=== PATIENT | male | born 1935 | race Caucasian/White ===

== ENCOUNTER 2018-08-01 19:33 | Inpatient (IN) | payer MEDICARE, MEDICAID ==
[~2018-08-01] VITALS: Ht 182.9 cm; Wt 99.0 kg
[~2018-08-01 19:33] MED LIST: ASPI-13 PO; IBUP-1985 PO; PROM6.256 PO
[2018-08-01] MEDS ORDERED: ondansetron/PF 4mg/2ml inj IV ONE (20:05)
[2018-08-01] MEDS ORDERED: normal saline 1000ML IV soln IVB ONE ×2 (20:05→22:35)
[2018-08-01 20:45] LABS: BASOPHILS % (AUTO) 0 % (0-1); EOSINOPHILS % (AUTO) 0.2 % (0-6); HEMATOCRIT 46.3 % (42.0-52.0); HEMOGLOBIN 15.8 g/dl (14.0-17.9); LYMPHOCYTES # (AUTO) 0.8 X10'3 (1.1-4.8); LYMPHOCYTES % (AUTO) 7.2 % (21-51); MEAN CORPUSCULAR HEMOGLOBIN 30.4 PG (27.0-31.0); MEAN CORPUSCULAR HGB CONC 34.1 % (33.0-36.5); MEAN PLATELET VOLUME 7.6 FL (7.4-10.4); MONOCYTES # (AUTO) 0.3 X10'3 (0-0.9); MONOCYTES % (AUTO) 3.3 % (2-12); NEUTROPHILS # (AUTO) 9.5 X10'3 (1.8-7.7); NEUTROPHILS % (AUTO) 89.3 % (42-75); PLATELET COUNT 202 X10'3 (140-440); RED BLOOD COUNT 5.21 X10'6 (4.70-6.10); RED CELL DISTRIBUTION WIDTH 13.5 % (11.5-14.5); WHITE BLOOD COUNT 10.6 X10'3 (4.5-11.0)
[2018-08-01 21:01] LABS: ALANINE AMINOTRANSFERASE 31 U/L (12-78); ALBUMIN 3.6 G/DL (3.4-5.0); ALBUMIN/GLOBULIN RATIO 1.1 (1.1-1.5); ALKALINE PHOSPHATASE 86 IU/L (46-116); ANION GAP 12 (8-16); ASPARTATE AMINO TRANSFERASE 18 U/L (10-37); BILIRUBIN,TOTAL 1.3 MG/DL (0.1-1.0); BLOOD UREA NITROGEN 18 MG/DL (7-18); BUN/CREATININE RATIO 11.8 (5.4-32.0); CALCIUM 8.7 MG/DL (8.5-10.1); CHLORIDE 102 MMOL/L (99-107); CREATININE 1.53 MG/DL (0.60-1.10); ETHANOL < 0.010 GM/DL (0.0-0.010); GLUCOSE 133 MG/DL (70-104); LIPASE 115 U/L (73-393); MAGNESIUM 1.5 MG/DL (1.5-2.4); POTASSIUM 3.8 MMOL/L (3.5-5.1); SODIUM 138 MMOL/L (135-145); TOTAL CARBON DIOXIDE 24.3 MMOL/L (24-32); TOTAL PROTEIN 6.9 G/DL (6.4-8.2); eGFR 44 ML/MIN
--- NOTE | 2018-08-01 22:09 | NUR ---
informed that patient has tried to void three times and is unable
[2018-08-01] MEDS ORDERED: magnesium 2GM in 50ml NS 50 ML IV ONE (22:35)
--- NOTE | 2018-08-01 22:35 | NUR ---
DISCUSSED PLAN OF CARE, ASKED ABOUT FLUIDS AND MAGNESIUM
--- NOTE | 2018-08-01 22:40 | NUR ---
TO CT SCAN VIA WC
--- NOTE | 2018-08-01 23:29 | NUR ---
DROPLET PERCAUTIONS DISCONTINUED
[2018-08-01] MEDS ORDERED: ATOR40TA72 PO (23:49)
[2018-08-01] MEDS ORDERED: TAMS0.4C32 PO (23:49)
[2018-08-01] MEDS ORDERED: AMLO5TAB16 PO (23:49)
[2018-08-02] MEDS ORDERED: acetaminophen 325mg tablet PO PRN ×2 (00:10)
[2018-08-02] MEDS ORDERED: HYDROcodone/acetaminophen 10/325mg tab PO PRN (00:10)
[2018-08-02] MEDS ORDERED: magnesium hydroxide 30ml (MOM) UD suspension PO PRN (00:10)
[2018-08-02] MEDS ORDERED: HYDROcodone/acetaminophen 5mg/325mg tablet PO PRN (00:10)
[2018-08-02] MEDS: normal saline 1000ml 1,000 ML IV SCH ×4 (00:34→22:51)
[2018-08-02 02:29] LABS: CLARITY,URINE CLEAR (Clear); COLOR,URINE YELLOW (Yellow); GLUCOSE, URINE NEGATIVE (Neg); KETONES,URINE TRACE mg/dl (Neg); LEUKOCYTE ESTERASE ,URINE NEGATIVE (Neg); NITRITES, URINE NEGATIVE (Neg); OCCULT BLOOD,URINE NEGATIVE (Neg); PH,URINE 6.5 (4.8-8.0); PROTEIN,URINE NEGATIVE (Neg); UROBILINOGEN,URINE 0.2 E.U/dL (0.2-1.0)
[2018-08-02 02:31] LABS: UA COLLECTION TYPE STRAIGHT CATH
--- NOTE | 2018-08-02 07:45 | NUR ---
Patient in room ORTHO 4011. I have received report from Asia Man in the ER and had the opportunity to ask questions and assume patient care.
[2018-08-02] MEDS ORDERED: enoxaparin 40mg/0.4ml syringe SUBCUT SCH (08:00)
[2018-08-02 09:00] VITALS: BP 136/87
[2018-08-02] MEDS: tamsulosin 0.4mg capsule PO SCH (09:14)
[2018-08-02] MEDS: amLODIPine 5mg tablet PO SCH (09:15)
[2018-08-02] MEDS: ondansetron/PF 4mg/2ml inj IV PRN (09:15)
[2018-08-02] MEDS: atorvastatin 20mg tablet PO SCH (09:15)
[2018-08-02] MEDS ORDERED: enoxaparin 30mg/0.3ml syringe SUBCUT SCH (09:16)
[2018-08-02 09:39] LABS: BASOPHILS % (AUTO) 0.3 % (0-1); EOSINOPHILS # (AUTO) 0.1 X10'3 (0-0.9); EOSINOPHILS % (AUTO) 1.7 % (0-6); HEMOGLOBIN 13.8 g/dl (14.0-17.9); LYMPHOCYTES % (AUTO) 14.6 % (21-51); MEAN CORPUSCULAR HEMOGLOBIN 30.2 PG (27.0-31.0); MEAN CORPUSCULAR HGB CONC 33.7 % (33.0-36.5); MEAN CORPUSCULAR VOLUME 89.7 FL (78-98); MEAN PLATELET VOLUME 7.6 FL (7.4-10.4); MONOCYTES # (AUTO) 0.5 X10'3 (0-0.9); MONOCYTES % (AUTO) 7.4 % (2-12); NEUTROPHILS # (AUTO) 5.4 X10'3 (1.8-7.7); PLATELET COUNT 183 X10'3 (140-440); RED BLOOD COUNT 4.58 X10'6 (4.70-6.10); RED CELL DISTRIBUTION WIDTH 13.8 % (11.5-14.5); WHITE BLOOD COUNT 7.1 X10'3 (4.5-11.0)
[2018-08-02 09:52] LABS: ALANINE AMINOTRANSFERASE 26 U/L (12-78); ALKALINE PHOSPHATASE 71 IU/L (46-116); ANION GAP 9 (8-16); ASPARTATE AMINO TRANSFERASE 16 U/L (10-37); BILIRUBIN,TOTAL 0.8 MG/DL (0.1-1.0); BLOOD UREA NITROGEN 16 MG/DL (7-18); BUN/CREATININE RATIO 12.6 (5.4-32.0); CALCIUM 7.6 MG/DL (8.5-10.1); CHLORIDE 106 MMOL/L (99-107); CREATININE 1.27 MG/DL (0.60-1.10); GLUCOSE 107 MG/DL (70-104); POTASSIUM 3.9 MMOL/L (3.5-5.1); SODIUM 140 MMOL/L (135-145); TOTAL CARBON DIOXIDE 25.4 MMOL/L (24-32); TOTAL PROTEIN 5.9 G/DL (6.4-8.2); eGFR 54 ML/MIN
[2018-08-02 10:00] VITALS: BP 135/65
[2018-08-02] MEDS: mag hydrox/Alum hydrox/simeth 30ml oral suspension PO PRN ×2 (13:27→21:38)
[2018-08-02 18:00] VITALS: BP 124/53
--- NOTE | 2018-08-02 18:10 | NUR ---
Patient in room ORTHO 4011. I have received report from ELVIS Ga and had the opportunity to ask questions and assume patient care.
--- NOTE | 2018-08-02 18:12 | NUR ---
Problems reprioritized. Patient report given, questions answered & plan of care reviewed with Jenna LEAL.
[2018-08-02] MEDS: LIDOcaine/PRILOcaine 5gm cream TP PRN (19:16)
[2018-08-02] MEDS: temazepam 15mg capsule PO PRN (21:41)
[2018-08-02 22:00] VITALS: BP 115/53
[2018-08-03] MEDS: ondansetron/PF 4mg/2ml inj IV PRN (03:29)
[2018-08-03] MEDS: LIDOcaine/PRILOcaine 5gm cream TP PRN ×2 (03:44→10:20)
[2018-08-03 06:00] VITALS: BP 134/54
--- NOTE | 2018-08-03 06:11 | NUR ---
received report from bonny mcintosh
--- NOTE | 2018-08-03 06:23 | NUR ---
Problems reprioritized. Patient report given, questions answered & plan of care reviewed with ELVIS Crump.
[2018-08-03 06:57] LABS: BASOPHILS % (AUTO) 0.1 % (0-1); EOSINOPHILS # (AUTO) 0.2 X10'3 (0-0.9); EOSINOPHILS % (AUTO) 3.2 % (0-6); HEMATOCRIT 39.9 % (42.0-52.0); HEMOGLOBIN 13.4 g/dl (14.0-17.9); LYMPHOCYTES # (AUTO) 1.5 X10'3 (1.1-4.8); LYMPHOCYTES % (AUTO) 18.6 % (21-51); MEAN CORPUSCULAR HEMOGLOBIN 30.3 PG (27.0-31.0); MEAN CORPUSCULAR HGB CONC 33.7 % (33.0-36.5); MEAN CORPUSCULAR VOLUME 89.8 FL (78-98); MEAN PLATELET VOLUME 7.8 FL (7.4-10.4); MONOCYTES # (AUTO) 0.7 X10'3 (0-0.9); MONOCYTES % (AUTO) 8.6 % (2-12); NEUTROPHILS # (AUTO) 5.5 X10'3 (1.8-7.7); NEUTROPHILS % (AUTO) 69.5 % (42-75); PLATELET COUNT 181 X10'3 (140-440); RED BLOOD COUNT 4.44 X10'6 (4.70-6.10); RED CELL DISTRIBUTION WIDTH 14.1 % (11.5-14.5); WHITE BLOOD COUNT 7.9 X10'3 (4.5-11.0)
[2018-08-03 06:59] LABS: ALBUMIN 2.8 G/DL (3.4-5.0); ANION GAP 8 (8-16); BLOOD UREA NITROGEN 11 MG/DL (7-18); BUN/CREATININE RATIO 8.9 (5.4-32.0); CALCIUM 7.7 MG/DL (8.5-10.1); CHLORIDE 109 MMOL/L (99-107); CREATININE 1.23 MG/DL (0.60-1.10); GLUCOSE 102 MG/DL (70-104); POTASSIUM 4.1 MMOL/L (3.5-5.1); SODIUM 142 MMOL/L (135-145); TOTAL CARBON DIOXIDE 25.2 MMOL/L (24-32); eGFR 56 ML/MIN
[2018-08-03] MEDS: atorvastatin 20mg tablet PO SCH (07:47)
[2018-08-03] MEDS: tamsulosin 0.4mg capsule PO SCH (07:47)
[2018-08-03] MEDS: amLODIPine 5mg tablet PO SCH (07:47)
[2018-08-03] MEDS: normal saline 1000ml 1,000 ML IV SCH (07:51)
[2018-08-03 10:00] VITALS: BP 118/68
--- NOTE | 2018-08-03 18:05 | NUR ---
gave report to bonny juárez
--- NOTE | 2018-08-03 18:08 | NUR ---
RECEIVED REPORT FROM AUSTIN LEAL AND ASSUMED PATIENT CARE
[2018-08-03 18:10] VITALS: BP 119/56
[2018-08-04] MEDS: normal saline 1000ml 1,000 ML IV SCH ×4 (03:45→23:52)
[2018-08-04 04:24] VITALS: BP 128/48
[2018-08-04 06:00] VITALS: BP 128/83
--- NOTE | 2018-08-04 06:20 | NUR ---
REPORT GIVEN TO CHRISTINA LEAL
[2018-08-04 06:39] LABS: BASOPHILS % (AUTO) 0.4 % (0-1); EOSINOPHILS # (AUTO) 0.3 X10'3 (0-0.9); EOSINOPHILS % (AUTO) 3.8 % (0-6); HEMATOCRIT 37.2 % (42.0-52.0); HEMOGLOBIN 12.5 g/dl (14.0-17.9); LYMPHOCYTES # (AUTO) 1.7 X10'3 (1.1-4.8); LYMPHOCYTES % (AUTO) 26.1 % (21-51); MEAN CORPUSCULAR HEMOGLOBIN 30.3 PG (27.0-31.0); MEAN CORPUSCULAR HGB CONC 33.6 % (33.0-36.5); MEAN CORPUSCULAR VOLUME 90.3 FL (78-98); MEAN PLATELET VOLUME 7.9 FL (7.4-10.4); MONOCYTES # (AUTO) 0.6 X10'3 (0-0.9); NEUTROPHILS % (AUTO) 60.7 % (42-75); PLATELET COUNT 160 X10'3 (140-440); RED BLOOD COUNT 4.12 X10'6 (4.70-6.10); RED CELL DISTRIBUTION WIDTH 13.6 % (11.5-14.5); WHITE BLOOD COUNT 6.6 X10'3 (4.5-11.0)
[2018-08-04 06:44] LABS: ALBUMIN 2.6 G/DL (3.4-5.0); ANION GAP 8 (8-16); BLOOD UREA NITROGEN 9 MG/DL (7-18); BUN/CREATININE RATIO 7.5 (5.4-32.0); CALCIUM 7.6 MG/DL (8.5-10.1); CHLORIDE 110 MMOL/L (99-107); CHOL/HDL RATIO 2.5 (0.00-4.99); CHOLESTEROL 76 MG/DL (0-200); GLUCOSE 100 MG/DL (70-104); HDL CHOLESTEROL 31 MG/DL (35-60); LDL CHOLESTEROL 37 MG/DL (50-100); POTASSIUM 4.1 MMOL/L (3.5-5.1); SODIUM 143 MMOL/L (135-145); TOTAL CARBON DIOXIDE 25.1 MMOL/L (24-32); TRIGLYCERIDES 82 MG/DL (20-135); eGFR 58 ML/MIN
[2018-08-04] MEDS: tamsulosin 0.4mg capsule PO SCH (07:57)
[2018-08-04] MEDS: enoxaparin 40mg/0.4ml syringe SUBCUT SCH (07:58)
[2018-08-04] MEDS: atorvastatin 20mg tablet PO SCH (07:58)
[2018-08-04] MEDS: amLODIPine 5mg tablet PO SCH (07:59)
--- NOTE | 2018-08-04 08:05 | NUR ---
patients heart rate 48. rechecked manually 45. Dr. Monsalve ordered to hold the amlodapine and give the other medications and start patient on tele monitor.
[2018-08-04] MEDS: mag hydrox/Alum hydrox/simeth 30ml oral suspension PO PRN (08:45)
[2018-08-04 10:00] VITALS: BP 120/51
[2018-08-04 18:00] VITALS: BP 139/55
--- NOTE | 2018-08-04 18:33 | NUR ---
Problems reprioritized. Patient report given, questions answered & plan of care reviewed with Gardenia LEAL .
[2018-08-04] MEDS: barium sulfate 450ml oral suspension PO NR (19:52)
--- NOTE | 2018-08-04 20:30 | NUR ---
tele called that HR down to 39. pt was up in Bathroom. pt states he bears down every time he goes to the bathroom. educated to not bear down. no symptoms of dizziness from low HR. drank barium - prefers chilled. educated on NPO status - verbalized understanding.
[2018-08-04 22:00] VITALS: BP 139/65
[2018-08-04] MEDS: temazepam 15mg capsule PO PRN (23:49)
[2018-08-05 01:28] VITALS: BP 122/67
[2018-08-05 06:00] VITALS: BP 145/61
[2018-08-05 06:10] LABS: BASOPHILS % (AUTO) 0.4 % (0-1); EOSINOPHILS # (AUTO) 0.2 X10'3 (0-0.9); EOSINOPHILS % (AUTO) 3.5 % (0-6); HEMATOCRIT 37.2 % (42.0-52.0); HEMOGLOBIN 12.5 g/dl (14.0-17.9); LYMPHOCYTES % (AUTO) 28.3 % (21-51); MEAN CORPUSCULAR HEMOGLOBIN 30.6 PG (27.0-31.0); MEAN CORPUSCULAR HGB CONC 33.7 % (33.0-36.5); MEAN CORPUSCULAR VOLUME 90.9 FL (78-98); MEAN PLATELET VOLUME 7.8 FL (7.4-10.4); MONOCYTES # (AUTO) 0.5 X10'3 (0-0.9); MONOCYTES % (AUTO) 7.2 % (2-12); NEUTROPHILS # (AUTO) 4.2 X10'3 (1.8-7.7); NEUTROPHILS % (AUTO) 60.6 % (42-75); PLATELET COUNT 176 X10'3 (140-440); RED BLOOD COUNT 4.09 X10'6 (4.70-6.10); RED CELL DISTRIBUTION WIDTH 13.7 % (11.5-14.5); WHITE BLOOD COUNT 6.9 X10'3 (4.5-11.0)
--- NOTE | 2018-08-05 06:10 | NUR ---
Patient in room ORTHO 4014. I have received report from Aisha Waite and had the opportunity to ask questions and assume patient care. Addendum: 08/05/18 at 0641 by Jacqueline Palacios RN Report received from Gia
[2018-08-05 06:17] LABS: ALBUMIN 2.7 G/DL (3.4-5.0); ANION GAP 7 (8-16); BLOOD UREA NITROGEN 9 MG/DL (7-18); BUN/CREATININE RATIO 7.9 (5.4-32.0); CALCIUM 7.8 MG/DL (8.5-10.1); CHLORIDE 109 MMOL/L (99-107); CREATININE 1.14 MG/DL (0.60-1.10); GLUCOSE 90 MG/DL (70-104); SODIUM 142 MMOL/L (135-145); TOTAL CARBON DIOXIDE 26.2 MMOL/L (24-32); eGFR 62 ML/MIN
--- NOTE | 2018-08-05 06:34 | NUR ---
reported to days. noted pt resting w/o distress. aware of NPO status. baruim due at 0700
[2018-08-05] MEDS: barium sulfate 450ml oral suspension PO NR ×2 (07:10→09:38)
[2018-08-05] MEDS: amLODIPine 5mg tablet PO SCH (08:00)
[2018-08-05] MEDS: tamsulosin 0.4mg capsule PO SCH (08:25)
[2018-08-05] MEDS: atorvastatin 20mg tablet PO SCH (08:25)
[2018-08-05] MEDS: enoxaparin 40mg/0.4ml syringe SUBCUT SCH (08:26)
[2018-08-05 10:00] VITALS: BP 152/62
[2018-08-05] MEDS: normal saline 1000ml 1,000 ML IV SCH (15:11)
[2018-08-05 18:00] VITALS: BP 153/54
--- NOTE | 2018-08-05 18:28 | NUR ---
Problems reprioritized. Patient report given, questions answered & plan of care reviewed with Dayna.
[2018-08-05] MEDS: temazepam 15mg capsule PO PRN (21:58)
[2018-08-05] MEDS: simethicone 80mg chew tab PO SCH (21:59)
[2018-08-05 22:00] VITALS: BP 149/56
[2018-08-06] MEDS: normal saline 1000ml 1,000 ML IV SCH (04:10)
[2018-08-06 06:00] VITALS: BP 149/58
--- NOTE | 2018-08-06 06:10 | NUR ---
Patient in room ORTHO 4014. I have received report from Dayna and had the opportunity to ask questions and assume patient care.
--- NOTE | 2018-08-06 06:17 | NUR ---
REPORT GIVEN TO ELVIS ANGELA.
[2018-08-06 06:39] LABS: BASOPHILS % (AUTO) 0.5 % (0-1); EOSINOPHILS # (AUTO) 0.2 X10'3 (0-0.9); EOSINOPHILS % (AUTO) 2.5 % (0-6); HEMATOCRIT 38.3 % (42.0-52.0); HEMOGLOBIN 12.9 g/dl (14.0-17.9); LYMPHOCYTES # (AUTO) 1.9 X10'3 (1.1-4.8); LYMPHOCYTES % (AUTO) 27.4 % (21-51); MEAN CORPUSCULAR HEMOGLOBIN 30.2 PG (27.0-31.0); MEAN CORPUSCULAR HGB CONC 33.7 % (33.0-36.5); MEAN CORPUSCULAR VOLUME 89.7 FL (78-98); MEAN PLATELET VOLUME 7.9 FL (7.4-10.4); MONOCYTES # (AUTO) 0.5 X10'3 (0-0.9); NEUTROPHILS # (AUTO) 4.3 X10'3 (1.8-7.7); NEUTROPHILS % (AUTO) 62.6 % (42-75); PLATELET COUNT 206 X10'3 (140-440); RED BLOOD COUNT 4.27 X10'6 (4.70-6.10); RED CELL DISTRIBUTION WIDTH 13.4 % (11.5-14.5); WHITE BLOOD COUNT 6.9 X10'3 (4.5-11.0)
[2018-08-06 06:50] LABS: ALBUMIN 2.9 G/DL (3.4-5.0); ANION GAP 7 (8-16); BLOOD UREA NITROGEN 12 MG/DL (7-18); BUN/CREATININE RATIO 10.8 (5.4-32.0); CALCIUM 8.3 MG/DL (8.5-10.1); CHLORIDE 108 MMOL/L (99-107); CREATININE 1.11 MG/DL (0.60-1.10); GLUCOSE 101 MG/DL (70-104); POTASSIUM 3.8 MMOL/L (3.5-5.1); SODIUM 142 MMOL/L (135-145); TOTAL CARBON DIOXIDE 26.6 MMOL/L (24-32); eGFR 64 ML/MIN
[2018-08-06] MEDS: amLODIPine 5mg tablet PO SCH (08:00)
[2018-08-06] MEDS: atorvastatin 20mg tablet PO SCH (08:06)
[2018-08-06] MEDS: tamsulosin 0.4mg capsule PO SCH (08:06)
[2018-08-06] MEDS: simethicone 80mg chew tab PO SCH ×2 (08:07→13:12)
[2018-08-06] MEDS: enoxaparin 40mg/0.4ml syringe SUBCUT SCH (08:07)
[2018-08-06 10:00] VITALS: BP 182/98
--- NOTE | 2018-08-06 10:01 | NUR ---
PAGER ID: [phone] MESSAGE: Jacqueline Bal Dr. on ortho/neuro. # [id number]. Pt in room 4014A, Mr. Gonzalez had BP of 182/98, and 180/66, HR 50, please advise. Thank you
[2018-08-06] MEDS ORDERED: enalaprilat dihydrate 2.5mg/2ml vial IV PRN (11:00)
--- NOTE | 2018-08-06 11:16 | NUR ---
Initial: Pt admit w/ diarrhea, nausea, vomiting and concerns w/ possible food poisoning from pt per EMR. CT negative for Ileus per MD note. Pt PO 100% mechanical soft/chopped meals meeting needs at this time. LBM 08/05. On simethicone for gas. Will continue to monitor. Rec: 1. continue mechanical soft/chopped diet 2. wt per rx Addendum: 08/06/18 at [address]án [address] RD Amended: Links added.
--- NOTE | 2018-08-06 12:20 | NUR ---
PAGER ID: [phone] MESSAGE: Mario Tyler, Jacqueline on ortho, #[id number], pt in room 4014A, Mr. Gonzalez, does not have an IV (per MD yesterday), Retake of his BP was 158/74 and HR 45 at 12:15. Please advise
--- NOTE | 2018-08-06 12:46 | NUR ---
Problems reprioritized. Patient report given, questions answered & plan of care reviewed with
--- NOTE | 2018-08-06 15:35 | NUR ---
Patient discharged with his brother and he is aware he has to follow up with Dr. Neumann and [facility]. He had all of his belongings and stop by hotel front desk agent to get his pocket knife.
== END 2018-08-06 15:30 | disposition home or self-care (01) | DRG 388 ==
LOC: ER 19:34 → ED HOLD 08-02 00:10 → ORTHO 4S 08-02 07:46
PROVIDERS: ADMIT Hospitalist; ATTEND Family Medicine
DX: K56.609 Unspecified intestinal obstruction, unspecified as to partial versus complete obstruction (principal); N17.0 Acute kidney failure with tubular necrosis; K57.90 Diverticulosis of intestine, part unspecified, without perforation or abscess without bleeding; M94.0 Chondrocostal junction syndrome [Tietze]; E86.0 Dehydration; G47.33 Obstructive sleep apnea (adult) (pediatric); N40.0 Benign prostatic hyperplasia without lower urinary tract symptoms; E78.5 Hyperlipidemia, unspecified; K72.90 Hepatic failure, unspecified without coma; R00.1 Bradycardia, unspecified; I25.10 Atherosclerotic heart disease of native coronary artery without angina pectoris; K56.7 Ileus, unspecified; Z66 Do not resuscitate; Z59.0 Homelessness; Z90.49 Acquired absence of other specified parts of digestive tract; Z91.041 Radiographic dye allergy status; Z86.73 Personal history of transient ischemic attack (TIA), and cerebral infarction without residual deficits; Z87.442 Personal history of urinary calculi
CPT/HCPCS: 36415; 71045; 74018; 74021; 74176; 80048; 80053; 80061; 80320; 81003; 83605; 83690; 83735; 84484; 85025; 87040; 87070; 87502; 87503; 93005; 96361; 96365; 96375; 97161; 99285; G0378; J1650; J2405; J3475; J7030

== ENCOUNTER 2019-05-30 06:17 | Emergency (ER) | payer MEDICARE, MEDICAID ==
[~2019-05-30] VITALS: Ht 180.3 cm; Wt 102.0 kg
[~2019-05-30 06:17] MED LIST changes: +AMLO5TAB16 PO; -ASPI-13 PO; +ATOR40TA72 PO; -IBUP-1985 PO; -PROM6.256 PO; +TAMS0.4C32 PO
[2019-05-30 06:23] VITALS: BP 178/87
[2019-05-30] MEDS ORDERED: triamcinolone acetonide 40mg/ml inj IM ONE (06:50)
== END 2019-05-30 07:15 | disposition home or self-care (01) ==
LOC: ER 06:18
DX: R21 Rash and other nonspecific skin eruption (principal); I25.10 Atherosclerotic heart disease of native coronary artery without angina pectoris; G47.30 Sleep apnea, unspecified; Z86.73 Personal history of transient ischemic attack (TIA), and cerebral infarction without residual deficits; Z86.718 Personal history of other venous thrombosis and embolism; Z90.49 Acquired absence of other specified parts of digestive tract; Z90.89 Acquired absence of other organs; Z60.2 Problems related to living alone; Z88.6 Allergy status to analgesic agent; Z79.899 Other long term (current) drug therapy
CPT/HCPCS: 96372; 99283; J3301

== ENCOUNTER 2021-04-04 07:05 | Emergency (ER) | payer MEDICARE, MEDICAID ==
[~2021-04-04] VITALS: Ht 180.3 cm; Wt 100.0 kg
[2021-04-04 07:28] VITALS: BP 150/82
--- NOTE | 2021-04-04 08:20 | NUR ---
Per registration, patient became upset after another patient had been called back to a quick assessment room before he was called back to a room. Patient left lobby. Will continue to attempt to call patient back to a room three times per protocol.
== END 2021-04-04 08:57 | disposition left against medical advice (07) ==
LOC: ER 07:06
DX: M54.9 Dorsalgia, unspecified (principal); R10.9 Unspecified abdominal pain; Z53.21 Procedure and treatment not carried out due to patient leaving prior to being seen by health care provider

== ENCOUNTER 2022-08-24 10:35 | Emergency (ER) | payer MEDICARE, MEDICAID ==
[~2022-08-24] VITALS: Ht 180.3 cm; Wt 103.6 kg
[2022-08-24 11:14] VITALS: BP 138/87
[2022-08-24 11:56] LABS: BASOPHILS # (AUTO) 0.1 X10'3 (0-0.2); EOSINOPHILS # (AUTO) 0.2 X10'3 (0-0.9); EOSINOPHILS % (AUTO) 2.8 % (0-6); HEMATOCRIT 44.4 % (42.0-52.0); LYMPHOCYTES % (AUTO) 11.1 % (21-51); MEAN CORPUSCULAR HEMOGLOBIN 30.7 PG (27.0-31.0); MEAN CORPUSCULAR HGB CONC 33.9 g/dL (33.0-36.5); MEAN CORPUSCULAR VOLUME 90.5 FL (78-98); MEAN PLATELET VOLUME 7.2 FL (7.4-10.4); MONOCYTES # (AUTO) 0.7 X10'3 (0-0.9); MONOCYTES % (AUTO) 7.5 % (2-12); NEUTROPHILS # (AUTO) 6.9 X10'3 (1.8-7.7); NEUTROPHILS % (AUTO) 77.6 % (42-75); PLATELET COUNT 214 X10'3 (140-440); RED CELL DISTRIBUTION WIDTH 14.3 % (11.5-14.5); WHITE BLOOD COUNT 8.9 X10'3 (4.5-11.0)
[2022-08-24 12:12] LABS: ALANINE AMINOTRANSFERASE 14 U/L (12-78); ALBUMIN 3.8 G/DL (3.4-5.0); ALBUMIN/GLOBULIN RATIO 1.2 (1.1-1.5); ALKALINE PHOSPHATASE 78 IU/L (46-116); ANION GAP 8 (8-16); ASPARTATE AMINO TRANSFERASE 20 U/L (10-37); BILIRUBIN,TOTAL 0.6 MG/DL (0.1-1.0); BLOOD UREA NITROGEN 20 MG/DL (7-18); BUN/CREATININE RATIO 17.1 (5.4-32.0); CALCIUM 9.6 MG/DL (8.5-10.1); CHLORIDE 103 MMOL/L (99-107); CREATININE 1.17 MG/DL (0.60-1.10); GLUCOSE 144 MG/DL (70-104); POTASSIUM 4.2 MMOL/L (3.5-5.1); SODIUM 140 MMOL/L (135-145); TOTAL CARBON DIOXIDE 28.7 MMOL/L (24-32); eGFR 59 ML/MIN
== END 2022-08-24 16:32 | disposition left against medical advice (07) ==
LOC: ER 10:36
DX: R05.9 Cough, unspecified (principal); M25.561 Pain in right knee; M25.562 Pain in left knee; Z91.041 Radiographic dye allergy status; Z90.49 Acquired absence of other specified parts of digestive tract; Z98.890 Other specified postprocedural states
CPT/HCPCS: 36415; 71046; 80053; 83605; 83880; 84484; 85025; 87040; 99284

== ENCOUNTER 2023-03-14 09:44 | Emergency (ER) | payer MEDICARE, MEDICAID ==
[~2023-03-14] VITALS: Ht 182.9 cm; Wt 100.0 kg
[2023-03-14 11:07] VITALS: TEMP 98.6
--- NOTE | 2023-03-14 11:21 | NUR ---
PT HAD $708 DOLLARS COLMENARES. RN AND REGISTRATION COUNTED $708 WITH PT AND MONEY WILL BE PLACED IN THE [facility].
--- NOTE | 2023-03-14 11:52 | NUR ---
LABS HAVE NOT BEEN COLLECTED. RN WILL ATTEMPT TO COLLECT FROM IV.
--- NOTE | 2023-03-14 12:04 | NUR ---
RN UNABLE TO COLLECT BLOOD FROM IV. LAB AT BEDSIDE COLLECTING BLOOD NOW.
[2023-03-14 12:28] LABS: BASOPHILS # (AUTO) 0.1 X10'3 (0-0.2); BASOPHILS % (AUTO) 0.8 % (0-1); EOSINOPHILS # (AUTO) 0.2 X10'3 (0-0.9); EOSINOPHILS % (AUTO) 2.2 % (0-6); HEMATOCRIT 43.3 % (42.0-52.0); HEMOGLOBIN 14.7 g/dl (14.0-17.9); LYMPHOCYTES # (AUTO) 1.6 X10'3 (1.1-4.8); LYMPHOCYTES % (AUTO) 17.7 % (21-51); MEAN CORPUSCULAR HEMOGLOBIN 30.7 PG (27.0-31.0); MEAN CORPUSCULAR VOLUME 90.3 FL (78-98); MEAN PLATELET VOLUME 7.2 FL (7.4-10.4); MONOCYTES # (AUTO) 0.7 X10'3 (0-0.9); MONOCYTES % (AUTO) 7.7 % (2-12); NEUTROPHILS # (AUTO) 6.4 X10'3 (1.8-7.7); NEUTROPHILS % (AUTO) 71.6 % (42-75); PLATELET COUNT 230 X10'3 (140-440); RED CELL DISTRIBUTION WIDTH 14.4 % (11.5-14.5)
[2023-03-14 12:46] LABS: ALANINE AMINOTRANSFERASE 21 U/L (12-78); ALBUMIN 3.9 G/DL (3.4-5.0); ALBUMIN/GLOBULIN RATIO 1.3 (1.1-1.5); ALKALINE PHOSPHATASE 71 IU/L (46-116); ANION GAP 9 (8-16); ASPARTATE AMINO TRANSFERASE 23 U/L (10-37); BILIRUBIN,TOTAL 0.9 MG/DL (0.1-1.0); BLOOD UREA NITROGEN 33 MG/DL (7-18); CHLORIDE 102 MMOL/L (99-107); CREATININE 1.74 MG/DL (0.60-1.10); GLUCOSE 142 MG/DL (70-104); POTASSIUM 4.9 MMOL/L (3.5-5.1); SODIUM 139 MMOL/L (135-145); TOTAL CARBON DIOXIDE 28.4 MMOL/L (24-32); TOTAL PROTEIN 6.9 G/DL (6.4-8.2); eCRCL 33 ML/MIN; eGFR 37 ML/MIN
[2023-03-14 12:57] LABS: PRO BRAIN NATRIURETIC PEPTIDE 124 PG/ML (0-450)
[2023-03-14] MEDS ORDERED: normal saline 1000ML IV soln IVB ONE (13:10)
--- NOTE | 2023-03-14 14:24 | NUR ---
RN REQ REGISTRATION GET PT MONEY FROM THE [facility] AND GIVE IT BACK TO PT. PT PREPARING FOR DISCHARGE.
--- NOTE | 2023-03-14 14:54 | NUR ---
RN COUNTED MONEY RETURN TO PT BY REGISTRATION. RN COUNTED WITH PT $707 RETURNED. PT AGREED TO PAY FOR TAXI.
--- NOTE | 2023-03-14 14:59 | NUR ---
PT AGREED TO PAY FOR TAXI. TAXI CALLED. CANE PROVIDED TO PT HE WAS USING HIS UMBRELLA A CANE. RN WILL ATTEMPT TO LOCATE SWEAT SUIT D/T PT CLOTHES WET FROM RAIN.
[2023-03-14 15:00] VITALS: BP 160/80; PULSE 65; RESP 17; O2SAT 94
== END 2023-03-14 15:13 | disposition home or self-care (01) ==
LOC: ER 09:45
DX: G20 Parkinson's disease (principal); R42 Dizziness and giddiness; W19.XXXA Unspecified fall, initial encounter; Y93.89 Activity, other specified; Y92.89 Other specified places as the place of occurrence of the external cause; Y99.8 Other external cause status
CPT/HCPCS: 36415; 71045; 80053; 82948; 83880; 84484; 85025; 93005; 96360; 99285; J7030

== ENCOUNTER 2023-07-02 23:55 | Emergency (ER) | payer MEDICARE, MEDICAID ==
[~2023-07-02] VITALS: Ht 182.9 cm; Wt 100.1 kg
[2023-07-02 23:59] VITALS: BP 143/93; PULSE 70; RESP 18; TEMP 98.3; O2SAT 94
== END 2023-07-03 07:10 | disposition left against medical advice (07) ==
LOC: ER 23:55
DX: M54.50 Low back pain, unspecified (principal); Z53.21 Procedure and treatment not carried out due to patient leaving prior to being seen by health care provider
CPT/HCPCS: 99281

== ENCOUNTER 2023-11-01 09:26 | Emergency (ER) | payer MEDICARE, MEDICAID ==
[~2023-11-01] VITALS: Ht 182.9 cm; Wt 100.0 kg
[2023-11-01 10:33] LABS: BASOPHILS # (AUTO) 0.1 X10'3 (0-0.2); BASOPHILS % (AUTO) 0.9 % (0-1); EOSINOPHILS # (AUTO) 0.1 X10'3 (0-0.9); EOSINOPHILS % (AUTO) 1.8 % (0-6); HEMATOCRIT 41.1 % (42.0-52.0); LYMPHOCYTES # (AUTO) 1.7 X10'3 (1.1-4.8); LYMPHOCYTES % (AUTO) 20.7 % (21-51); MEAN CORPUSCULAR VOLUME 88.4 FL (78-98); MEAN PLATELET VOLUME 7.8 FL (7.4-10.4); MONOCYTES # (AUTO) 0.5 X10'3 (0-0.9); MONOCYTES % (AUTO) 5.6 % (2-12); NEUTROPHILS # (AUTO) 5.8 X10'3 (1.8-7.7); PLATELET COUNT 202 X10'3 (140-440); RED BLOOD COUNT 4.65 X10'6 (4.70-6.10); RED CELL DISTRIBUTION WIDTH 14.1 % (11.5-14.5); WHITE BLOOD COUNT 8.2 X10'3 (4.5-11.0)
[2023-11-01 11:03] LABS: ALBUMIN 3.1 G/DL (3.4-5.0); ANION GAP 8 (8-16); BLOOD UREA NITROGEN 13 MG/DL (7-18); BUN/CREATININE RATIO 12.6 (10.0-20.0); CALCIUM 8.6 MG/DL (8.5-10.1); CHLORIDE 105 MMOL/L (99-107); CREATININE 1.03 MG/DL (0.60-1.10); GLUCOSE 246 MG/DL (70-104); POTASSIUM 3.7 MMOL/L (3.5-5.1); PRO BRAIN NATRIURETIC PEPTIDE 284 PG/ML (0-450); SODIUM 139 MMOL/L (135-145); TOTAL CARBON DIOXIDE 25.6 MMOL/L (24-32); eCRCL 57 ML/MIN; eGFR 68 ML/MIN
[2023-11-01] MEDS ORDERED: ketorolac trometh inj. 60 MG/2 ML VIAL IM ONE (11:45)
[2023-11-01] MEDS: ketorolac tromethamine 15mg/ml inj. IM ONE (12:07)
[2023-11-01 13:03] VITALS: BP 118/68; PULSE 68; RESP 16; TEMP 97.8; O2SAT 97
== END 2023-11-01 13:04 | disposition home or self-care (01) ==
LOC: ER 09:28
DX: M54.6 Pain in thoracic spine (principal); R07.89 Other chest pain; Z88.8 Allergy status to other drugs, medicaments and biological substances; I25.10 Atherosclerotic heart disease of native coronary artery without angina pectoris; Z86.73 Personal history of transient ischemic attack (TIA), and cerebral infarction without residual deficits; G47.30 Sleep apnea, unspecified; Z86.718 Personal history of other venous thrombosis and embolism; Z90.49 Acquired absence of other specified parts of digestive tract
CPT/HCPCS: 36415; 71045; 72070; 80048; 83880; 84484; 85025; 93005; 96372; 99285; J1885

== ENCOUNTER 2024-03-20 15:39 | Emergency (ER) | payer MEDICARE, MEDICAID ==
[~2024-03-20] VITALS: Ht 182.9 cm; Wt 82.7 kg
[2024-03-20 16:40] LABS: BASOPHILS # (AUTO) 0.1 X10'3 (0-0.2); EOSINOPHILS # (AUTO) 0.2 X10'3 (0-0.9); EOSINOPHILS % (AUTO) 1.9 % (0-6); HEMATOCRIT 38.9 % (42.0-52.0); HEMOGLOBIN 12.8 g/dl (14.0-17.9); LYMPHOCYTES # (AUTO) 1.7 X10'3 (1.1-4.8); MEAN CORPUSCULAR HEMOGLOBIN 29.2 PG (27.0-31.0); MEAN CORPUSCULAR VOLUME 88.3 FL (78-98); MONOCYTES # (AUTO) 0.5 X10'3 (0-0.9); MONOCYTES % (AUTO) 6.4 % (2-12); NEUTROPHILS % (AUTO) 70.7 % (42-75); PLATELET COUNT 219 X10'3 (140-440); RED CELL DISTRIBUTION WIDTH 14.4 % (11.5-14.5); WHITE BLOOD COUNT 8.5 X10'3 (4.5-11.0)
[2024-03-20 16:50] LABS: ALBUMIN 3.2 G/DL (3.4-5.0); ALKALINE PHOSPHATASE 84 IU/L (46-116); ANION GAP 8 (8-16); ASPARTATE AMINO TRANSFERASE 7 U/L (10-37); BILIRUBIN,TOTAL 0.6 MG/DL (0.1-1.0); BLOOD UREA NITROGEN 14 MG/DL (7-18); BUN/CREATININE RATIO 17.7 (10.0-20.0); CALCIUM 9.3 MG/DL (8.5-10.1); CHLORIDE 106 MMOL/L (99-107); CREATININE 0.79 MG/DL (0.60-1.10); GLUCOSE 189 MG/DL (70-104); LIPASE 33 U/L (16-77); POTASSIUM 4.2 MMOL/L (3.5-5.1); SODIUM 142 MMOL/L (135-145); TOTAL CARBON DIOXIDE 27.9 MMOL/L (24-32); TOTAL PROTEIN 6.3 G/DL (6.4-8.2); eCRCL 72 ML/MIN; eGFR > 90 ML/MIN
[2024-03-20 16:51] LABS: ALANINE AMINOTRANSFERASE < 6 U/L (12-78)
[2024-03-20 17:26] VITALS: BP 166/86; PULSE 66; TEMP 98; O2SAT 95
[2024-03-20] MEDS: traMADol 50MG tablet PO ONE (17:53)
[2024-03-20 17:55] LABS: BILIRUBIN,URINE NEGATIVE (Neg); CLARITY,URINE CLEAR (Clear); COLOR,URINE AMBER (Yellow); GLUCOSE, URINE 250 mg/dl (Neg); KETONES,URINE 15 mg/dl (Neg); LEUKOCYTE ESTERASE ,URINE NEGATIVE (Neg); NITRITES, URINE NEGATIVE (Neg); OCCULT BLOOD,URINE NEGATIVE (Neg); PROTEIN,URINE NEGATIVE (Neg); UROBILINOGEN,URINE 0.2 E.U/dL (0.2-1.0)
[2024-03-20 17:56] LABS: UA COLLECTION TYPE VOIDED
[2024-03-20] MEDS ORDERED: TRAM50TA2 PO (18:06)
[2024-03-20 20:04] VITALS: RESP 20
[2024-03-20] MEDS: oxyCODONE/APAP 5-325mg tablet PO ONE (20:04)
[2024-03-20] MEDS ORDERED: OXYC-145 PO (20:58)
== END 2024-03-20 21:16 | disposition home or self-care (01) ==
LOC: ER 15:40
DX: K86.89 Other specified diseases of pancreas (principal); I25.10 Atherosclerotic heart disease of native coronary artery without angina pectoris; G47.39 Other sleep apnea; Z88.8 Allergy status to other drugs, medicaments and biological substances; Z79.899 Other long term (current) drug therapy; Z86.73 Personal history of transient ischemic attack (TIA), and cerebral infarction without residual deficits; Z86.718 Personal history of other venous thrombosis and embolism; Z90.49 Acquired absence of other specified parts of digestive tract; Z98.890 Other specified postprocedural states; Z60.2 Problems related to living alone
CPT/HCPCS: 36415; 74176; 80053; 81003; 83690; 85025; 99284

== ENCOUNTER 2024-03-26 08:40 | Emergency (ER) | payer MEDICARE, MEDICAID ==
[~2024-03-26 08:40] MED LIST changes: +OXYC-145 PO
[2024-03-26 09:40] VITALS: BP 132/72; PULSE 60; RESP 16; O2SAT 94
[2024-03-26] MEDS ORDERED: OXYC-145 PO (11:13)
[2024-03-26] MEDS ORDERED: DOCU-148 PO (11:14)
[2024-03-26] MEDS ORDERED: IBUP-1985 PO (11:15)
[2024-03-26 11:19] VITALS: TEMP 98.5
== END 2024-03-26 11:21 | disposition home or self-care (01) ==
LOC: ER 08:40
DX: R10.84 Generalized abdominal pain (principal); Z76.0 Encounter for issue of repeat prescription; R60.0 Localized edema; I25.10 Atherosclerotic heart disease of native coronary artery without angina pectoris; G47.39 Other sleep apnea; Z91.018 Allergy to other foods; Z79.899 Other long term (current) drug therapy; Z90.49 Acquired absence of other specified parts of digestive tract; Z98.890 Other specified postprocedural states; Z86.73 Personal history of transient ischemic attack (TIA), and cerebral infarction without residual deficits; Z86.718 Personal history of other venous thrombosis and embolism; Z60.2 Problems related to living alone
CPT/HCPCS: 99284